=== PATIENT | male | born 1965 | race American Indian/Alaskan Native ===

== ENCOUNTER 2019-10-18 04:16 | Inpatient (IN) | payer OTHER, SELFPAY ==
[2019-10-18] MEDS ORDERED: ACETAMINOPHEN 500 MG TAB PO ONE (04:27)
[2019-10-18] MEDS ORDERED: SODIUM CHLORIDE 0.9% 1000 ML 1,000 ML IV ONE (07:34)
[2019-10-18] MEDS ORDERED: KETOROLAC 30 MG/1 ML INJ IV ONE (07:34)
--- NOTE | 2019-10-18 07:35 | Emergency Department Report ---
ED General Adult HPI - General Chief complaint: Headache Stated complaint: HEADACHE Time Seen by Provider: 10/18/19 07:11 Source: patient Mode of arrival: Ambulatory Limitations: No Limitations - History of Present Illness Initial comments: 54-year-old male who denies any known significant past medical history presents to the ER today complaint of headache and testicular swelling. Patient states that he has had a bitemporal headache intermittently for the past 2 days. He states that he has been taking Goody powders which has been helping the headac he. He denies any associated nausea, vomiting, neck pain, URI symptoms, cough, vision changes or any neuro symptoms. Patient also reports bilateral testicular swelling which he noticed last night. He denies any associated pain, redness to the testicles, injury to the testicles, and he denies any dysuria or penile discharge. He denies any associated abdominal pain or back pain. He denies any history of testicular issues or prostate issues in the past. Patient noted to have a fever here in the ER, he denies any fever at home. He denies any ill contacts, known COVID 19 contacts or recent travel. MD Complaint: Headache; Testicular swelling Severity scale (0 -10): 2 - Related Data Home Medications Medication Instructions Recorded Confirmed Last Taken No Known Home Medications [No 10/18/19 10/18/19 Unknown Reported Home Medications] Allergies Allergy/AdvReac Type Severity Reaction Status Date / Time No Known Allergies Allergy Unverified 10/18/19 04:27 ED Review of Systems ROS: Stated complaint: HEADACHE Other details as noted in HPI ED Past Medical Hx - Past Medical History Previous Medical History?: Yes Hx Hypertension: Yes - Surgical History Past Surgical History?: Yes Additional Surgical History: EXP Lap - Social History Smoking Status: Never Smoker Substance Use Type: None - Medications Home Medications: Home Medications Medication Instructions Recorded Confirmed Last Taken Type No Known Home Medications [No 10/18/19 10/18/19 Unknown History Reported Home Medications] ED Physical Exam - General Limitations: No Limitations General appearance: alert, in no apparent distress - Head Head exam: Present: atraumatic, normocephalic, normal inspection - Eye Eye exam: Present: normal appearance, PERRL, EOMI Pupils: Present: normal accommodation - ENT ENT exam: Present: normal exam, mucous membranes moist - Neck Neck exam: Present: normal inspection. Absent: meningismus - Respiratory Respiratory exam: Present: normal lung sounds bilaterally. Absent: respiratory distress - Cardiovascular Cardiovascular Exam: Present: regular rate, normal heart sounds - GI/Abdominal GI/Abdominal exam: Present: soft. Absent: distended, tenderness - exam: Present: testicular tenderness (mainly left), scrotal swelling (Mild bilaterally ). Absent: urethral discharge External exam: Present: swelling. Absent: erythema, lesions, ecchymosis, bleeding - Extremities Exam Extremities exam: Present: other (non pitting edema bilateral LE; No calf ttp) - Back Exam Back exam: Present: normal inspection - Neurological Exam Neurological exam: Present: alert, oriented X3, CN II-XII intact, normal gait - Psychiatric Psychiatric exam: Present: normal affect, normal mood - Skin Skin exam: Present: diaphoretic ED Course Vital Signs 10/18/19 10/18/19 10/18/19 04:25 05:31 05:58 Temperature 101.0 F H 99.5 F Pulse Rate 104 H 86 Respiratory 20 16 17 Rate Blood Pressure 139/93 Blood Pressure [Right] O2 Sat by Pulse 95 97 Oximetry 10/18/19 10/18/19 10/18/19 07:52 08:22 12:41 Temperature 97.8 F Pulse Rate 69 Respiratory 16 16 16 Rate Blood Pressure Blood Pressure 145/81 [Right] O2 Sat by Pulse 97 Oximetry ED Medical Decision Making - Lab Data Result diagrams: 10/18/19 08:24 10/18/19 08:24 - EKG Data EKG shows normal: sinus rhythm Rate: normal - EKG Data Interpretation: other (PAC, RBBB; No STEMI or acute ischemic changes; ) - Radiology Data Radiology results: report reviewed - Medical Decision Making 921 -- Reviewed labs/cxr/testicular US -- Interviewed pt again after reviewing test results. He denies any cp, sob, but admits to left leg swelling off and on x 6mths. He denies hx of known kidney disease or heart disease. He denies any new sexual partners. He does admits to not having a PCP and he has not been to a doctor in long time. Discussed case and lab/imaging results with Dr Biggs, agree with adding BNP, trop but also blood cultures, Urine culture, IV rocephin and recommend consulting u rologist given US results. 1054 -- Spoke to [facility] ([facility]) transfer line for urologist consult. They said they were going try [facility] but they may not have coverage. She recommend calling other facilities in the meantime. 1110 -- Spoke [facility] transfer line,- request for urology consult placed 11:40 -- Spoke to Dr Gaytan - Urologist at [facility] - She reports that epididymyoorchitis only requires outpt treatment with Bactrim for 2 weeks. No need for transfer. Given pt denies any pmhx -- pt will be admitted for CHF/renal insufficiency/elevated trop (suspect secondary to elevated creatinine and bnp - EKG show no acute stemi), hyponatremia and UTI. Decision to admit discussed with patient. He is currently resting comfortably. Denies any pain. He is currently stable. 1200 -- Spoke to Dr House (hospitalist here at [facility]) -- Accepts admission Critical care attestation.: If time is entered above; I have spent that time in minutes in the direct care of this critically ill patient, excluding procedure time. ED Disposition Clinical Impression: Congestive heart failure, Renal insufficiency, Epididymo-orchitis, Elevated troponin, Hyponatremia, UTI (urinary tract infection) Disposition: DC-01 TO HOME OR SELFCARE Is pt being admited?: Yes Does the pt Need Aspirin: No Condition: Stable
[2019-10-18 08:34] LABS: Basophils # (Auto) 0.1 K/mm3 (0.0-0.1); Basophils % (Auto) 0.4 % (0.0-1.8); Eosinophils % (Auto) 0.2 % (0.0-4.3); Hematocrit 38.1 % (35.5-45.6); Hemoglobin 12.3 gm/dl (11.8-15.2); Lymphocytes # (Auto) 1.9 K/mm3 (1.2-5.4); Lymphocytes % (Auto) 12.6 % (13.4-35.0); Mean Corpuscular HGB Conc 32 % (32-34); Mean Corpuscular Volume 83 fl (84-94); Monocytes # (Auto) 1.3 K/mm3 (0.0-0.8); Monocytes % (Auto) 8.4 % (0.0-7.3); Platelet Count 195 K/mm3 (140-440); Red Blood Count 4.62 M/mm3 (3.65-5.03); Red Cell Distribution Width 15.4 % (13.2-15.2)
--- NOTE | 2019-10-18 08:39 | Ultrasound Report ---
ULTRASOUND SCROTUM INDICATION / CLINICAL INFORMATION: Testicular pain. COMPARISON: None available. FINDINGS -- RIGHT TESTIS: Size = 4.7 x 3.2 x 3.8 cm. - Appearance: No significant abnormality. - Cyst or Mass: None. - Color Doppler Flow: Symmetric increased color flow is noted of the right testicle. EPIDIDYMIS: Enlarged epididymis measures 2.1 x 1.4 cm with increased color flow. HYDROCELE: Moderate hydrocele. VARICOCELE: None demonstrated. FINDINGS -- LEFT TESTIS: Size = 5.0 x 2.7 x 3.2 cm. - Appearance: No significant abnormality. - Cyst or Mass: None. - Color Doppler Flow: Symmetric increased color flow is noted of the left testicle. EPIDIDYMIS: The epididymis is minimally enlarged measuring 2.0 x 1.2 cm and demonstrating minimally increased color flow. HYDROCELE: Moderate hydrocele. VARICOCELE: None demonstrated. ADDITIONAL FINDINGS: Thickening of the scrotal superficial soft tissues. IMPRESSION: 1. Findings concerning for bilateral epididymoorchitis. 2. Moderate bilateral hydroceles. 3. Inflammatory changes to the scrotal superficial soft tissues. Signer Name: Kenan Bella MD Signed: 10/18/2019 8:34 AM Workstation Name: [id number]
[2019-10-18 08:53] LABS: Albumin 3.4 g/dL (3.9-5); Calcium 8.8 mg/dL (8.4-10.2)
--- NOTE | 2019-10-18 08:53 | XRay Report ---
CHEST 2 VIEWS INDICATION / CLINICAL INFORMATION: fever. COMPARISON: None available. FINDINGS: SUPPORT DEVICES: None. HEART / MEDIASTINUM: Enlarged cardiac silhouette. LUNGS / PLEURA: Mild central pulmonary vascular congestion. No confluent infiltrate.. No pneumothorax or effusion. ADDITIONAL FINDINGS: Calcification is noted projecting over the left hemidiaphragm. IMPRESSION: 1. Findings consistent with congestive heart failure and mild central pulmonary vascular congestion. Signer Name: Kenan Bella MD Signed: 10/18/2019 8:48 AM Workstation Name: [id number]
[2019-10-18] MEDS ORDERED: cefTRIAXone/NS 1 GM/50 ML 1 GM/50 ML BAG IV ONE (09:20)
[2019-10-18 09:51] LABS: Bilirubin,Urine NEG (Negative); Blood,Urine MOD (Negative); Color,Urine Amber (Yellow); Mucus,Urine 2+ /HPF
[2019-10-18] MEDS ORDERED: DOXYCYCLINE 100 MG CAP PO ONE (10:36)
[2019-10-18 10:44] LABS: Chol/HDL Ratio 2.71 %
--- NOTE | 2019-10-18 12:56 | Cat Scan Report ---
NONENHANCED CT SCAN OF THE HEAD: INDICATION / CLINICAL INFORMATION: 54 years Male; Headache, fever. TECHNIQUE: Routine CT head without contrast. All CT scans at this location are performed using CT dos e reduction for ALARA by means of automated exposure control. COMPARISON: CT scan of the head from 01/31/2012 FINDINGS: BRAIN / INTRACRANIAL CONTENTS: No acute hemorrhage, mass effect, midline shift, hydrocephalus, or acu te, large territorial infarct. No chronic infarct or focal atrophy. Normal brain volume and ventricul ar/sulcal size for age. Lower CT attenuation is seen symmetrically in the frontal lobe white matter a nd also in the left putamen. Parietal lobe and occipital lobe white matter normal. Poor ivffrj-wo-wps se is seen in the previous CT scan. CRANIOCERVICAL JUNCTION: No significant abnormality. ORBITS: No significant abnormality of visualized orbits. SINUSES / MASTOIDS: No significant abnormality of the visualized paranasal sinuses or mastoid air angelita ls. ADDITIONAL FINDINGS: None. IMPRESSION: Bifrontal white matter low-attenuation areas; Chronic small vessel disease; No CT findings to suggest acute parenchymal lesion Signer Name: Ana Altamirano MD Signed: 10/18/2019 12:52 PM Workstation Name: [id number]
--- NOTE | 2019-10-18 13:02 | History and Physical Report ---
History of Present Illness Date of examination: 10/18/19 Date of admission: 10/18/19 12:13 Medications and Allergies Allergies Allergy/AdvReac Type Severity Reaction Status Date / Time No Known Allergies Allergy Unverified 10/18/19 04:27 Home Medications Medication Instructions Recorded Confirmed Last Taken Type No Known Home Medications [No 10/18/19 10/18/19 Unknown History Reported Home Medications] Exam - Constitutional Vitals: Temp Pulse Resp BP Pulse Ox 97.8 F 69 16 145/81 97 10/18/19 12:41 10/18/19 12:41 10/18/19 12:41 10/18/19 12:41 10/18/19 12:41 HEART Score - HEART Score Troponin: Troponin T 0.054 ng/mL (0.00-0.029) H 10/18/19 08:24 Results - Labs CBC & Chem 7: 10/18/19 08:24 10/18/19 08:24 Labs: Abnormal lab results 10/18/19 10/18/19 10/18/19 Range/Units 08:24 08:24 08:24 WBC 15.3 H (4.5-11.0) K/mm3 MCV 83 L (84-94) fl MCH 27 L (28-32) pg RDW 15.4 H (13.2-15.2) % Lymph % (Auto) 12.6 L (13.4-35.0) % [place] % (Auto) 8.4 H (0.0-7.3) % [place] # 1.3 H (0.0-0.8) K/mm3 Seg Neutrophils % 78.4 H (40.0-70.0) % Seg Neutrophils # 12.0 H (1.8-7.7) K/mm3 Sodium 129 L (137-145) mmol/L Potassium 3.5 L (3.6-5.0) mmol/L Chloride 90.7 L (98-107) mmol/L BUN 23 H (9-20) mg/dL Creatinine 2.0 H (0.8-1.3) mg/dL Glucose 160 H (75-100) mg/dL AST 43 H (5-40) units/L Troponin T 0.054 H (0.00-0.029) ng/mL NT-Pro-B Natriuret Pep 3441 H (0-900) pg/mL Albumin 3.4 L (3.9-5) g/dL HDL Cholesterol 60 H (40-59) mg/dL Urine WBC (Auto) (0.0-6.0) /HPF 10/18/19 Range/Units 09:42 WBC (4.5-11.0) K/mm3 MCV (84-94) fl MCH (28-32) pg RDW (13.2-15.2) % Lymph % (Auto) (13.4-35.0) % [place] % (Auto) (0.0-7.3) % [place] # (0.0-0.8) K/mm3 Seg Neutrophils % (40.0-70.0) % Seg Neutrophils # (1.8-7.7) K/mm3 Sodium (137-145) mmol/L Potassium (3.6-5.0) mmol/L Chloride (98-107) mmol/L BUN (9-20) mg/dL Creatinine (0.8-1.3) mg/dL Glucose (75-100) mg/dL AST (5-40) units/L Troponin T (0.00-0.029) ng/mL NT-Pro-B Natriuret Pep (0-900) pg/mL Albumin (3.9-5) g/dL HDL Cholesterol (40-59) mg/dL Urine WBC (Auto) 23.0 H (0.0-6.0) /HPF
[2019-10-18] MEDS ORDERED: ACETAMINOPHEN 650 MG RECT SUPP PR PRN (13:04)
--- NOTE | 2019-10-18 13:47 | History and Physical Report ---
<FREDIS VIRAMONTES - Last Filed: 10/18/19 16:59> History of Present Illness Date of examination: 10/18/19 Date of admission: 10/18/19 12:13 Chief complaint: 1. lecucytosis 2. urinary trach Infection 3. Acute Kidney injury 4. Elevated trponin History of present illness: 54-year-old male who denies any known significant past medical history of hypertesion and CHF-presents to the ER today complaint of headache and testicular swelling-US of the scrotum shows moderate hydrocele. He denies any associated pain, redness to the testicles, injury to the testicles, and he denies any dysuria or penile discharge. Patient states that he has had a bitemporal headache intermittently for the past 2 days. He states that he has been taking Goody powders which has been helping the headache. He denies any associated nausea, vomiting, neck pain, URI symptoms, cough, vision changes or any neuro symptoms. He denies any associated abdominal pain or back pain. He denies any history of testicular issues or prostate issues in the past. ED Work up Shows WBC 15.3, hemoglobin 12.3, Platelet 195, D-dimer 959.12, potassium 3.5 CR 2.0, Serum glucose 160, Ferritin 804, BNP 3441 Urinalysis done-WBC 23.0 Scrotum US-positive for moderate Hydrocele Past History Past Medical History: heart failure, hypertension Past Surgical History: No surgical history Medications and Allergies Allergies Allergy/AdvReac Type Severity Reaction Status Date / Time No Known Allergies Allergy Unverified 10/18/19 04:27 Home Medications Medication Instructions Recorded Confirmed Last Taken Type No Known Home Medications [No 10/18/19 10/18/19 Unknown History Reported Home Medications] Active Meds: Active Medications Acetaminophen (Tylenol) [address] Q6H PRN PRN Reason: Pain, Mild (1-3) Carvedilol (Coreg) 6.25 mg PO BID KYA Furosemide (Lasix) 40 mg IV 0600,1800 [facility] Exam - Constitutional Vitals: Temp Pulse Resp BP Pulse Ox 97.8 F 69 16 145/81 97 10/18/19 12:41 10/18/19 12:41 10/18/19 12:41 10/18/19 12:41 10/18/19 12:41 General appearance: Present: no acute distress, well-nourished - EENT Eyes: Present: PERRL ENT: hearing intact, clear oral mucosa - Neck Neck: Present: supple, normal ROM - Respiratory Respiratory effort: normal Respiratory: bilateral: CTA - Cardiovascular Heart rate: 69 Heart Sounds: Present: S1 & S2. Absent: rub, click - Extremities Extremities: pulses symmetrical, No edema Peripheral Pulses: within normal limits - Abdominal General gastrointestinal: Present: soft, non-tender, non-distended, normal bowel sounds Male genitourinary: Present: normal - Integumentary Integumentary: Present: clear, warm, dry - Musculoskeletal Musculoskeletal: gait normal, strength equal bilaterally - Psychiatric Psychiatric: appropriate mood/affect, intact judgment & insight - Neurologic Neurologic: CNII-XII intact, moves all extremities - Allied Health Allied health notes reviewed: nursing HEART Score - HEART Score Troponin: Troponin T 0.054 ng/mL (0.00-0.029) H 10/18/19 08:24 Results - Labs CBC & Chem 7: 10/18/19 08:24 10/18/19 08:24 Labs: Abnormal lab results 10/18/19 10/18/19 10/18/19 Range/Units 08:24 08:24 08:24 WBC 15.3 H (4.5-11.0) K/mm3 MCV 83 L (84-94) fl MCH 27 L (28-32) pg RDW 15.4 H (13.2-15.2) % Lymph % (Auto) 12.6 L (13.4-35.0) % [place] % (Auto) 8.4 H (0.0-7.3) % [place] # 1.3 H (0.0-0.8) K/mm3 Seg Neutrophils % 78.4 H (40.0-70.0) % Seg Neutrophils # 12.0 H (1.8-7.7) K/mm3 Sodium 129 L (137-145) mmol/L Potassium 3.5 L (3.6-5.0) mmol/L Chloride 90.7 L (98-107) mmol/L BUN 23 H (9-20) mg/dL Creatinine 2.0 H (0.8-1.3) mg/dL Glucose 160 H (75-100) mg/dL AST 43 H (5-40) units/L Troponin T 0.054 H (0.00-0.029) ng/mL NT-Pro-B Natriuret Pep 3441 H (0-900) pg/mL Albumin 3.4 L (3.9-5) g/dL HDL Cholesterol 60 H (40-59) mg/dL Urine WBC (Auto) (0.0-6.0) /HPF 10/18/19 Range/Units 09:42 WBC (4.5-11.0) K/mm3 MCV (84-94) fl MCH (28-32) pg RDW (13.2-15.2) % Lymph % (Auto) (13.4-35.0) % [place] % (Auto) (0.0-7.3) % [place] # (0.0-0.8) K/mm3 Seg Neutrophils % (40.0-70.0) % Seg Neutrophils # (1.8-7.7) K/mm3 Sodium (137-145) mmol/L Potassium (3.6-5.0) mmol/L Chloride (98-107) mmol/L BUN (9-20) mg/dL Creatinine (0.8-1.3) mg/dL Glucose (75-100) mg/dL AST (5-40) units/L Troponin T (0.00-0.029) ng/mL NT-Pro-B Natriuret Pep (0-900) pg/mL Albumin (3.9-5) g/dL HDL Cholesterol (40-59) mg/dL Urine WBC (Auto) 23.0 H (0.0-6.0) /HPF Assessment and Plan - Patient Problems (1) SLIME (acute kidney injury) Current Visit: Yes Status: Acute Plan to address problem: ? Cause-likely UTI/Dehydration Monitor Kidney function Avoid nephrotoxic drugs Will Consult contemporary or modern dancer if needed Renal US-f/u with result (2) Leucocytosis Current Visit: Yes Status: Acute Plan to address problem: Likely due to UTI Continue IV hydration and IV antibiotic Monitor WBC (3) Congestive heart failure Current Visit: Yes Status: Acute Plan to address problem: Elevated BNP Property Site Manager consulted-f/u with recommendation Elevated BNP-[id number] Continue BB and diuretic ECHO-f/u with result Chest k-evv-yjohiz pending CT of the head-result pending (4) Elevated troponin Current Visit: Yes Status: Acute Plan to address problem: ? cause-cardiac, SLIME Monitor cardiac enzymes ECHO-f/u with result Property Site Manager consulted (5) Hyponatremia Current Visit: Yes Status: Acute Plan to address problem: likely due to dehydration Monitor sodium level (6) UTI (urinary tract infection) Current Visit: Yes Status: Acute Plan to address problem: Start Rocephine IV urine culture Blood culture (7) DVT prophylaxis Current Visit: Yes Status: Acute Plan to address problem: heparin SQ (8) Elevated d-dimer Current Visit: Yes Status: Acute Plan to address problem: Elevated inflammatory makers including ferritin trend inflammatory makers Continue anti-coagulant with heparin Covid test done-f/u with result observe airborne and contact isolation-till covid result (9) Scrotum swelling Current Visit: Yes Status: Acute Plan to address problem: Srotum swelling likely 2/2 chf US shows moderate hydrocele patient advised to follow up with urologist out patient if scrotum edema persist <EASTON CARLSO - Last Filed: 10/18/19 22:36> History of Present Illness Date of admission: 10/18/19 12:13 Chief complaint: I have seen and examined the patient at the bedside in ER awaiting bed assignment Patient's chart medication list tests and reports reviewed I have reviewed and agree with the nurse practitioners evaluation. Documentation and treatment plan With the following additions and corrections. --Epididymoorchitis; Empiric antibiotics Rocephin and doxycycline Blood cultures, support the scrotum Urology consult, consider ID consult as needed --Bilateral hydrocele; Patient patient has generalized anasarca Urology consult, surgery consult if needed --Morbid obesity; BMI 39.8 Patient needs weight reduction when medically stable --DVT prophylaxis; We will closely monitor the patient and adjust management as needed Plan of care reviewed with the patient and his nurse Medications and Allergies Active Meds: Active Medications Acetaminophen (Tylenol) [address] Q6H PRN PRN Reason: Pain, Mild (1-3) Atorvastatin Calcium (Lipitor) 40 mg PO QHS [facility] Carvedilol (Coreg) 6.25 mg PO BID [facility] Doxycycline Hyclate (Vibramycin) 100 mg PO BID [facility] Furosemide (Lasix) 40 mg IV 0600,1800 [facility] Last Admin: 10/18/19 18:50 Dose: 40 mg Documented by: Heparin Sodium (Porcine) (Heparin) 5,000 unit SUB-Q Q8HR KYA Ceftriaxone Sodium 1,000 mg/ (Sodium Chloride) 50 mls @ 100 mls/hr IV PREOP NR; Protocol Stop: 10/23/19 14:59 Exam - Constitutional Vitals: Temp Pulse Resp BP Pulse Ox 99.6 F 127 H 16 131/98 95 10/18/19 20:47 10/18/19 20:47 10/18/19 20:57 10/18/19 20:47 10/18/19 20:47 HEART Score - HEART Score Troponin: Troponin T 0.054 ng/mL (0.00-0.029) H 10/18/19 08:24 Results - Labs CBC & Chem 7: 10/18/19 08:24 10/18/19 08:24 Labs: Abnormal lab results 10/18/19 10/18/19 10/18/19 Range/Units 08:24 08:24 08:24 WBC 15.3 H (4.5-11.0) K/mm3 MCV 83 L (84-94) fl MCH 27 L (28-32) pg RDW 15.4 H (13.2-15.2) % Lymph % (Auto) 12.6 L (13.4-35.0) % [place] % (Auto) 8.4 H (0.0-7.3) % [place] # 1.3 H (0.0-0.8) K/mm3 Seg Neutrophils % 78.4 H (40.0-70.0) % Seg Neutrophils # 12.0 H (1.8-7.7) K/mm3 D-Dimer (0-234) ng/mlDDU Sodium 129 L (137-145) mmol/L Potassium 3.5 L (3.6-5.0) mmol/L Chloride 90.7 L (98-107) mmol/L BUN 23 H (9-20) mg/dL Creatinine 2.0 H (0.8-1.3) mg/dL Glucose 160 H (75-100) mg/dL Ferritin (30.0-300.0) ng/mL AST 43 H (5-40) units/L Lactate Dehydrogenase (91-180) units/L Troponin T 0.054 H (0.00-0.029) ng/mL C-Reactive Protein (0.00-1.30) mg/dL NT-Pro-B Natriuret Pep 3441 H (0-900) pg/mL Albumin 3.4 L (3.9-5) g/dL HDL Cholesterol 60 H (40-59) mg/dL Urine WBC (Auto) (0.0-6.0) /HPF 10/18/19 10/18/19 10/18/19 Range/Units 09:42 12:32 12:32 WBC (4.5-11.0) K/mm3 MCV (84-94) fl MCH (28-32) pg RDW (13.2-15.2) % Lymph % (Auto) (13.4-35.0) % [place] % (Auto) (0.0-7.3) % [place] # (0.0-0.8) K/mm3 Seg Neutrophils % (40.0-70.0) % Seg Neutrophils # (1.8-7.7) K/mm3 D-Dimer 959.12 H (0-234) ng/mlDDU Sodium (137-145) mmol/L Potassium (3.6-5.0) mmol/L Chloride (98-107) mmol/L BUN (9-20) mg/dL Creatinine (0.8-1.3) mg/dL Glucose (75-100) mg/dL Ferritin 804.0 H (30.0-300.0) ng/mL AST (5-40) units/L Lactate Dehydrogenase (91-180) units/L Troponin T (0.00-0.029) ng/mL C-Reactive Protein (0.00-1.30) mg/dL NT-Pro-B Natriuret Pep (0-900) pg/mL Albumin (3.9-5) g/dL HDL Cholesterol (40-59) mg/dL Urine WBC (Auto) 23.0 H (0.0-6.0) /HPF 10/18/19 Range/Units 12:32 WBC (4.5-11.0) K/mm3 MCV (84-94) fl MCH (28-32) pg RDW (13.2-15.2) % Lymph % (Auto) (13.4-35.0) % [place] % (Auto) (0.0-7.3) % [place] # (0.0-0.8) K/mm3 Seg Neutrophils % (40.0-70.0) % Seg Neutrophils # (1.8-7.7) K/mm3 D-Dimer (0-234) ng/mlDDU Sodium (137-145) mmol/L Potassium (3.6-5.0) mmol/L Chloride (98-107) mmol/L BUN (9-20) mg/dL Creatinine (0.8-1.3) mg/dL Glucose (75-100) mg/dL Ferritin (30.0-300.0) ng/mL AST (5-40) units/L Lactate Dehydrogenase 387 H (91-180) units/L Troponin T (0.00-0.029) ng/mL C-Reactive Protein 32.30 H (0.00-1.30) mg/dL NT-Pro-B Natriuret Pep (0-900) pg/mL Albumin (3.9-5) g/dL HDL Cholesterol (40-59) mg/dL Urine WBC (Auto) (0.0-6.0) /HPF
[2019-10-18 14:42] LABS: C-Reactive Protein 32.3 mg/dL (0.00-1.30)
[2019-10-18] MEDS ORDERED: FUROSEMIDE 40 MG/4 ML INJ ONE (18:05)
[2019-10-18] MEDS: FUROSEMIDE 40 MG/4 ML INJ IV SCH (18:50)
--- NOTE | 2019-10-18 19:04 | Ultrasound Report ---
US renal BILAT INDICATION / CLINICAL INFORMATION: SLIME. COMPARISON: None available. FINDINGS: Kidneys are normal in size, shape and position. Right kidney measures 12 cm in length, with cortical thickness of 1.7 cm. Left kidney also measures 12 cm in length, with approximately 1.6 cm cortical th ickness. Neither kidney is hydronephrotic. No obvious renal calculi. Urinary bladder is unremarkable. IMPRESSION: 1. Negative study. Signer Name: Herminio Whitney MD Signed: 10/18/2019 7:00 PM Workstation Name: [id number]
[2019-10-18] MEDS: HEPARIN 5,000 UNIT/1 ML VIAL SUB-Q SCH (23:00)
[2019-10-18] MEDS: carvediloL 6.25 MG TAB PO SCH (23:00)
[2019-10-19] MEDS: HEPARIN 5,000 UNIT/1 ML VIAL SUB-Q SCH ×3 (06:12→22:04)
[2019-10-19] MEDS: FUROSEMIDE 40 MG/4 ML INJ IV SCH ×2 (06:12→18:41)
--- NOTE | 2019-10-19 08:29 | Progress Note ---
Assessment and Plan - Patient Problems (1) SLIME (acute kidney injury) Current Visit: Yes Status: Acute Plan to address problem: ? Cause-likely UTI/Dehydration Monitor Kidney function Avoid nephrotoxic drugs Will Consult icing machine operator if needed Renal US-negative for acute process (2) Leucocytosis Current Visit: Yes Status: Acute Plan to address problem: Likely due to UTI Continue IV hydration and IV antibiotic Monitor WBC (3) Congestive heart failure Current Visit: Yes Status: Acute Plan to address problem: Elevated BNP Marine Animal Trainer consulted-f/u with recommendation Elevated BNP-3341 Continue BB and diuretic ECHO-f/u with result Chest [id number] pending CT of the head-no acute finding (4) Elevated troponin Current Visit: Yes Status: Acute Plan to address problem: ? cause-cardiac, SLIME/infection-uti Monitor cardiac enzymes ECHO-f/u with result Marine Animal Trainer consulted Stress test before d/c (5) Hyponatremia Current Visit: Yes Status: Acute Plan to address problem: likely due to fluid overload Monitor sodium level (6) UTI (urinary tract infection) Current Visit: Yes Status: Acute Plan to address problem: continue Rocephine IV urine culture Blood culture (7) DVT prophylaxis Current Visit: Yes Status: Acute Plan to address problem: heparin SQ (8) Elevated d-dimer Current Visit: Yes Status: Acute Plan to address problem: Elevated inflammatory makers including ferritin-likely due to bacterial infection Covid test negative continue anti-coagulant with heparin Covid test done-f/u with result D/c airborne and contact isolation (9) Epididymo-orchitis Current Visit: Yes Status: Acute Plan to address problem: Continue IV antibiotics (10) Morbid (severe) obesity due to excess calories Current Visit: Yes Status: Acute Plan to address problem: Discussed lifestyle modification and weight management (11) Bilateral hydrocele Current Visit: Yes Status: Acute Plan to address problem: Patient patient has generalized edema Urology consult, surgery consult if needed Srotum swelling likely 2/2 chf US shows moderate hydrocele Subjective Date of service: 10/19/19 Interval history: I have seen and examined the patient at the bedside Patient's chart medication list tests and reports reviewed Epididymoorchitis-will continue empiric antibiotic pending blood and urine culture result and sensitivity Urology consulted and will consult ID consult as needed. Reviewed bike mechanic note and reces Continue Nitro ointment for pre-and afterload reduction. Intravenous diuretics Echocardiogram to assess global and regional function. Stress MPI prior to discharge Objective - Constitutional Vitals: Vital Signs - 12hr 10/18/19 10/18/19 10/18/19 20:47 20:57 23:00 Temperature 99.6 F Pulse Rate 127 H 127 H Respiratory 20 16 Rate Blood Pressure Blood Pressure 131/98 [Right] O2 Sat by Pulse 95 Oximetry 10/19/19 05:10 Temperature 99.2 F Pulse Rate 99 H Respiratory 20 Rate Blood Pressure 130/74 Blood Pressure [Right] O2 Sat by Pulse 95 Oximetry General appearance: Present: mild distress, obese - EENT Eyes: PERRL, EOM intact ENT: hearing intact, clear oral mucosa Ears: bilateral: normal - Neck Neck: supple, normal ROM - Respiratory Respiratory effort: normal Respiratory: bilateral: CTA - Breasts Breasts: normal - Cardiovascular Rhythm: regular Heart Sounds: Present: S1 & S2. Absent: gallop, rub Extremities: pulses intact, normal color, Full ROM Extremity abnormal: edema - Gastrointestinal General gastrointestinal: Present: soft, non-tender, non-distended, normal bowel sounds - Genitourinary Male genitourinary: normal - Integumentary Integumentary: clear, warm, dry - Musculoskeletal Musculoskeletal: 1, strength equal bilaterally - Neurologic Neurologic: moves all extremities - Psychiatric Psychiatric: memory intact, appropriate mood/affect, intact judgment & insight - Allied health notes Allied health notes reviewed: nursing - Labs CBC & Chem 7: 10/18/19 08:24 10/18/19 08:24 Labs: Abnormal lab results 10/18/19 10/18/19 10/18/19 Range/Units 08:24 08:24 08:24 WBC 15.3 H (4.5-11.0) K/mm3 MCV 83 L (84-94) fl MCH 27 L (28-32) pg RDW 15.4 H (13.2-15.2) % Lymph % (Auto) 12.6 L (13.4-35.0) % [place] % (Auto) 8.4 H (0.0-7.3) % [place] # 1.3 H (0.0-0.8) K/mm3 Seg Neutrophils % 78.4 H (40.0-70.0) % Seg Neutrophils # 12.0 H (1.8-7.7) K/mm3 D-Dimer (0-234) ng/mlDDU Sodium 129 L (137-145) mmol/L Potassium 3.5 L (3.6-5.0) mmol/L Chloride 90.7 L (98-107) mmol/L BUN 23 H (9-20) mg/dL Creatinine 2.0 H (0.8-1.3) mg/dL Glucose 160 H (75-100) mg/dL Ferritin (30.0-300.0) ng/mL AST 43 H (5-40) units/L Lactate Dehydrogenase (91-180) units/L Troponin T 0.054 H (0.00-0.029) ng/mL C-Reactive Protein (0.00-1.30) mg/dL NT-Pro-B Natriuret Pep 3441 H (0-900) pg/mL Albumin 3.4 L (3.9-5) g/dL HDL Cholesterol 60 H (40-59) mg/dL Urine WBC (Auto) (0.0-6.0) /HPF 10/18/19 10/18/19 10/18/19 Range/Units 09:42 12:32 12:32 WBC (4.5-11.0) K/mm3 MCV (84-94) fl MCH (28-32) pg RDW (13.2-15.2) % Lymph % (Auto) (13.4-35.0) % [place] % (Auto) (0.0-7.3) % [place] # (0.0-0.8) K/mm3 Seg Neutrophils % (40.0-70.0) % Seg Neutrophils # (1.8-7.7) K/mm3 D-Dimer 959.12 H (0-234) ng/mlDDU Sodium (137-145) mmol/L Potassium (3.6-5.0) mmol/L Chloride (98-107) mmol/L BUN (9-20) mg/dL Creatinine (0.8-1.3) mg/dL Glucose (75-100) mg/dL Ferritin 804.0 H (30.0-300.0) ng/mL AST (5-40) units/L Lactate Dehydrogenase (91-180) units/L Troponin T (0.00-0.029) ng/mL C-Reactive Protein (0.00-1.30) mg/dL NT-Pro-B Natriuret Pep (0-900) pg/mL Albumin (3.9-5) g/dL HDL Cholesterol (40-59) mg/dL Urine WBC (Auto) 23.0 H (0.0-6.0) /HPF 10/18/19 Range/Units 12:32 WBC (4.5-11.0) K/mm3 MCV (84-94) fl MCH (28-32) pg RDW (13.2-15.2) % Lymph % (Auto) (13.4-35.0) % [place] % (Auto) (0.0-7.3) % [place] # (0.0-0.8) K/mm3 Seg Neutrophils % (40.0-70.0) % Seg Neutrophils # (1.8-7.7) K/mm3 D-Dimer (0-234) ng/mlDDU Sodium (137-145) mmol/L Potassium (3.6-5.0) mmol/L Chloride (98-107) mmol/L BUN (9-20) mg/dL Creatinine (0.8-1.3) mg/dL Glucose (75-100) mg/dL Ferritin (30.0-300.0) ng/mL AST (5-40) units/L Lactate Dehydrogenase 387 H (91-180) units/L Troponin T (0.00-0.029) ng/mL C-Reactive Protein 32.30 H (0.00-1.30) mg/dL NT-Pro-B Natriuret Pep (0-900) pg/mL Albumin (3.9-5) g/dL HDL Cholesterol (40-59) mg/dL Urine WBC (Auto) (0.0-6.0) /HPF HEART Score - HEART Score History: Slightly suspicious Troponin: Troponin T 0.054 ng/mL (0.00-0.029) H 10/18/19 08:24
--- NOTE | 2019-10-19 10:41 | Consultation ---
History of Present Illness Consult date: 10/19/19 Consult reason: congestive heart failure History of present illness: 54-year-old -[place] male with a history of hypertension and congestive heart failure presenting with scrotal swelling headache. Patient had a chest x- ray done which showed pulmonary vascular congestion and his BNP was elevated. He admits to having shortness of breath and dyspnea but no chest pain. Past History Past Medical History: heart failure, hypertension Past Surgical History: No surgical history Social history: smoking. denies: alcohol abuse, prescription drug abuse, IV drug use Family history: diabetes, hypertension Medications and Allergies Allergies Allergy/AdvReac Type Severity Reaction Status Date / Time No Known Allergies Allergy Unverified 10/18/19 04:27 Home Medications Medication Instructions Recorded Confirmed Last Taken Type No Known Home Medications [No 10/18/19 10/18/19 Unknown History Reported Home Medications] Active Meds: Active Medications Acetaminophen (Tylenol) 650 mg LA Q6H PRN PRN Reason: Pain, Mild (1-3) Atorvastatin Calcium (Lipitor) 40 mg PO QHS [facility] Last Admin: 10/18/19 23:00 Dose: 40 mg Documented by: Carvedilol (Coreg) 6.25 mg PO BID [facility] Last Admin: 10/18/19 23:00 Dose: 6.25 mg Documented by: Doxycycline Hyclate (Vibramycin) 100 mg PO BID [facility] Furosemide (Lasix) 40 mg IV 0600,1800 [facility] Last Admin: 10/19/19 06:12 Dose: 40 mg Documented by: Heparin Sodium (Porcine) (Heparin) 5,000 unit SUB-Q Q8HR [facility] Last Admin: 10/19/19 06:12 Dose: 5,000 unit Documented by: Ceftriaxone Sodium 1,000 mg/ (Sodium Chloride) 50 mls @ 100 mls/hr IV PREOP NR; Protocol Stop: 10/23/19 14:59 Review of Systems Constitutional: weakness, no weight loss, no weight gain, no fever, no chills, no sweats, no fatigue Ears, nose, mouth and throat: no ear pain, no ear discharge, no tinnitis, no decreased hearing Cardiovascular: edema, dyspnea on exertion, no chest pain, no orthopnea, no rapid/irregular heart beat Respiratory: no cough, no cough with sputum, no excessive sputum, no dyspnea on exertion, no congestion, no wheezing, no pleurisy Gastrointestinal: no abdominal pain, no nausea, no vomiting, no diarrhea Genitourinary Male: testicular pain, no dysuria, no hematuria, no flank pain, no discharge Rectal: no pain, no incontinence, no bleeding Musculoskeletal: no neck stiffness, no neck pain, no low back pain, no hot joints Integumentary: no rash, no pruritis Neurological: no head injury, no transient paralysis, no paralysis, no weakness, no parathesias Psychiatric: no anxiety, no memory loss Endocrine: no cold intolerance, no heat intolerance, no polyphagia, no excessive thirst, no polydipsia, no polyuria, no nocturia Hematologic/Lymphatic: no easy bruising, no easy bleeding Allergic/Immunologic: no urticaria, no allergic rhinitis, no wheezing Physical Examination Vital Signs Temp Pulse Resp BP Pulse Ox 101.0 F H 104 H 20 139/93 95 10/18/19 04:25 10/18/19 04:25 10/18/19 04:25 10/18/19 04:25 10/18/19 04:25 General appearance: no acute distress, obese HEENT: Positive: PERRL, Normocephaly, Mucus Membranes Moist Neck: Positive: neck supple, trachea midline Cardiac: Positive: Regular Rate, S1/S2, PMI, Laterally Displaced Lungs: Positive: clear to auscultation, No Wheeze, Rales, Rhonchi Neuro: Positive: Grossly Intact, No Lateralizing Findings Abdomen: Positive: Active Bowel Sounds Skin: Positive: Rash Extremities: Absent: edema Results 10/18/19 08:24 10/18/19 08:24 Cardiac Enzymes 10/18/19 Range/Units 12:32 Lactate Dehydrogenase 387 H (91-180) units/L Lipids 10/18/19 Range/Units 08:24 Triglycerides 87 (2-149) mg/dL Cholesterol 163 (50-199) mg/dL HDL Cholesterol 60 H (40-59) mg/dL Cholesterol/HDL Ratio 2.71 % EKG interpretations - Telemetry EKG Rhythm: Sinus Rhythm - EKG Sinus rhythms and dysrhythmias: sinus rhythm Assessment and Plan 1. Acute testicular pain 2. Acute mild congestive heart failure probably secondary to fluid overload. 3. Chronic kidney disease stage III 4. Essential hypertension 5. Obesity. 6. Nonspecific elevation of serum troponin level in the setting of chronic kidney disease 7. Urinary tract infection Plan. Nitro ointment for pre-and afterload reduction. Intravenous diuretics Echocardiogram to assess global and regional function. Stress MPI prior to discharge.
[2019-10-19] MEDS: cefTRIAXone/NS 1 GM/50 ML 1 GM/50 ML BAG IV SCH (13:31)
[2019-10-19] MEDS: DOXYCYCLINE 100 MG CAP PO SCH ×2 (13:31→22:03)
[2019-10-19] MEDS: carvediloL 6.25 MG TAB PO SCH ×2 (13:35→22:03)
[2019-10-19 20:28] LABS: Calcium 8.8 mg/dL (8.4-10.2)
[2019-10-20] MEDS: HEPARIN 5,000 UNIT/1 ML VIAL SUB-Q SCH ×3 (05:08→22:52)
[2019-10-20] MEDS: FUROSEMIDE 40 MG/4 ML INJ IV SCH ×2 (05:08→18:00)
--- NOTE | 2019-10-20 08:00 | Progress Note ---
Assessment and Plan - Patient Problems (1) SLIME (acute kidney injury) Current Visit: Yes Status: Acute Plan to address problem: ? Cause-likely UTI/Dehydration Monitor Kidney function-improving Avoid nephrotoxic drugs Renal US-negative for abstruction and hydronephrosis (2) Leucocytosis Current Visit: Yes Status: Acute Plan to address problem: Likely due to UTI/bacterial lelypesin-[id number] 9.2 today Continue antibiotics Inflammatory makers elevated-patient is covid negative Monitor WBC (3) Congestive heart failure Current Visit: Yes Status: Acute Plan to address problem: Condition stable [employer] Paralegal consulted-f/u with recommendation Elevated BNP-3341 Continue BB and diuretic ECHO-EF 45% Chest [id number] consistent with congestive heart failure and mild central pulmonary vascular congestion. CT of the head-no acute finding (4) Elevated troponin Current Visit: Yes Status: Acute Plan to address problem: ? cause-cardiac, SLIME/infection-uti Monitor cardiac enzymes ECHO-result pending [employer]adem[employer] Paralegal consulted Stress test before d/c (5) Hyponatremia Current Visit: Yes Status: Acute Plan to address problem: likely 2/2 fluid overload-improving Low sodium improving 134 today Monitor sodium level (6) UTI (urinary tract infection) Current Visit: Yes Status: Acute Plan to address problem: continue Rocephine IV urine culture Blood culture (7) DVT prophylaxis Current Visit: Yes Status: Acute Plan to address problem: heparin SQ (8) Elevated d-dimer Current Visit: Yes Status: Acute Plan to address problem: Elevated inflammatory makers including ferritin-likely due to bacterial infection Covid test negative continue anti-coagulant with heparin D/c airborne and contact isolation (9) Epididymo-orchitis Current Visit: Yes Status: Acute Plan to address problem: Continue IV antibiotics (10) Morbid (severe) obesity due to excess calories Current Visit: Yes Status: Acute Plan to address problem: Discussed lifestyle modification and weight management (11) Bilateral hydrocele Current Visit: Yes Status: Acute Plan to address problem: Stable Urology consult, surgery consult if needed Srotum swelling likely 2/2 chf US shows moderate hydrocele Subjective Date of service: 10/20/19 Principal diagnosis: shortness of breath Interval history: I have seen and examined the patient at the bedside Patient on room air. He denies cp and shortness breath Patient's chart medication list tests and reports reviewed Epididymoorchitis-will continue empiric antibiotic pending blood and urine culture result and sensitivity Urology consulted and will consult ID consult as needed. 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 Intravenous diuretics Echocardiogram - Shows- Moderate concentric LVH with low normal global LV function LVEF 45 to 50% Stress MPI prior to discharge Objective - Constitutional Vitals: Vital Signs - 12hr 10/19/19 10/19/19 10/19/19 22:00 22:02 22:03 Temperature 98.2 F Pulse Rate 85 Pulse Rate [ 85 Right Radial] Respiratory 20 20 Rate Blood Pressure 104/59 104/59 O2 Sat by Pulse 93 93 Oximetry 10/20/19 04:59 Temperature 98.2 F Pulse Rate 82 Pulse Rate [ Right Radial] Respiratory 20 Rate Blood Pressure 142/96 O2 Sat by Pulse 92 Oximetry General appearance: Present: no acute distress, well-nourished - EENT Eyes: PERRL, EOM intact ENT: hearing intact, clear oral mucosa Ears: bilateral: normal - Neck Neck: supple, normal ROM - Respiratory Respiratory effort: normal Respiratory: bilateral: CTA - Breasts Breasts: normal - Cardiovascular Rhythm: regular Heart Sounds: Present: S1 & S2. Absent: gallop, rub Extremities: pulses intact, No edema, normal color, Full ROM - Gastrointestinal General gastrointestinal: Present: soft, non-tender, non-distended, normal bowel sounds - Genitourinary Male genitourinary: normal - Integumentary Integumentary: clear, warm, dry - Musculoskeletal Musculoskeletal: 1, strength equal bilaterally - Neurologic Neurologic: moves all extremities - Psychiatric Psychiatric: memory intact, appropriate mood/affect, intact judgment & insight - Labs CBC & Chem 7: 10/20/19 08:11 10/20/19 08:11 Labs: Abnormal lab results 10/19/19 Range/Units 19:10 Sodium 131 L (137-145) mmol/L Chloride 87.8 L (98-107) mmol/L BUN 39 H (9-20) mg/dL Creatinine 2.0 H (0.8-1.3) mg/dL Glucose 210 H (75-100) mg/dL HEART Score - HEART Score Troponin: Troponin T 0.054 ng/mL (0.00-0.029) H 10/18/19 08:24
[2019-10-20 08:33] LABS: Basophils % (Auto) 0.4 % (0.0-1.8); Eosinophils # (Auto) 0.3 K/mm3 (0.0-0.4); Eosinophils % (Auto) 3.1 % (0.0-4.3); Hematocrit 35.7 % (35.5-45.6); Hemoglobin 12.4 gm/dl (11.8-15.2); Lymphocytes # (Auto) 1.6 K/mm3 (1.2-5.4); Lymphocytes % (Auto) 17.2 % (13.4-35.0); Mean Corpuscular HGB Conc 35 % (32-34); Mean Corpuscular Volume 82 fl (84-94); Monocytes # (Auto) 0.7 K/mm3 (0.0-0.8); Monocytes % (Auto) 7.9 % (0.0-7.3); Platelet Count 254 K/mm3 (140-440); Red Blood Count 4.36 M/mm3 (3.65-5.03); Red Cell Distribution Width 16.1 % (13.2-15.2)
[2019-10-20] MEDS: carvediloL 6.25 MG TAB PO SCH ×2 (09:38→22:53)
[2019-10-20] MEDS: DOXYCYCLINE 100 MG CAP PO SCH ×2 (09:39→22:54)
--- NOTE | 2019-10-20 09:44 | Progress Note ---
Assessment and Plan 1. Acute testicular pain 2. Acute mild congestive heart failure probably secondary to fluid overload. 3. Chronic kidney disease stage III 4. Essential hypertension 5. Obesity. 6. Nonspecific elevation of serum troponin level in the setting of chronic kidney disease 7. Urinary tract infection Echocardiogram: Moderate concentric LVH with low normal global LV function LVEF 45 to 50% Plan. Continue present medication. CHF education on heart failure Lexiscan scan to rule out ischemic coronary artery disease prior to discharge. Subjective Date of service: 10/20/19 Interval history: No cardiac symptoms Objective Vital Signs Temp Pulse Pulse Resp BP Pulse Ox 10/20/19 09:38 82 142/96 10/20/19 04:59 98.2 F 82 20 142/96 92 10/19/19 22:03 104/59 10/19/19 22:02 98.2 F 85 20 104/59 93 10/19/19 22:00 85 20 93 10/19/19 16:46 99.1 F 90 22 120/83 95 10/19/19 13:35 90 118/83 10/19/19 11:54 98.9 F 90 20 118/83 96 10/19/19 10:00 95 - Physical Examination HEENT: Positive: PERRL, Normocephaly, Mucus Membranes Moist Neck: Positive: neck supple, trachea midline Cardiac: Positive: Regular Rate, S1/S2, S3, PMI, Dilated, Laterally Displaced Lungs: Positive: clear to auscultation, No Wheeze, Rales, Rhonchi Neuro: Positive: Grossly Intact, No Lateralizing Findings Abdomen: Positive: Active Bowel Sounds Skin: Positive: Rash Extremities: Absent: edema - Labs and Meds CBC 10/20/19 Range/Units 08:11 WBC 9.2 (4.5-11.0) K/mm3 RBC 4.36 (3.65-5.03) M/mm3 Hgb 12.4 (11.8-15.2) gm/dl Hct 35.7 (35.5-45.6) % Plt Count 254 (140-440) K/mm3 Lymph # 1.6 (1.2-5.4) K/mm3 [place] # 0.7 (0.0-0.8) K/mm3 Eos # 0.3 (0.0-0.4) K/mm3 Baso # 0.0 (0.0-0.1) K/mm3 Comprehensive Metabolic Panel 10/19/19 10/20/19 Range/Units 19:10 08:11 Sodium 131 L 134 L (137-145) mmol/L Potassium 3.7 4.0 (3.6-5.0) mmol/L Chloride 87.8 L 92.1 L (98-107) mmol/L Carbon Dioxide 28 28 (22-30) mmol/L BUN 39 H 39 H (9-20) mg/dL Creatinine 2.0 H 1.9 H (0.8-1.3) mg/dL Glucose 210 H 160 H (75-100) mg/dL Calcium 8.8 9.0 (8.4-10.2) mg/dL - EKG Sinus rhythms and dysrhythmias: sinus rhythm
[2019-10-20] MEDS: cefTRIAXone/NS 1 GM/50 ML 1 GM/50 ML BAG IV SCH (15:03)
[2019-10-21] MEDS: HEPARIN 5,000 UNIT/1 ML VIAL SUB-Q SCH ×2 (06:07→13:19)
[2019-10-21] MEDS: FUROSEMIDE 40 MG/4 ML INJ IV SCH ×2 (06:07→17:09)
--- NOTE | 2019-10-21 08:42 | XRay Report ---
CHEST 1 VIEW INDICATION / CLINICAL INFORMATION: SOB V/Q PROTOCOL. COMPARISON: 10/18/2019 FINDINGS: SUPPORT DEVICES: None. HEART / MEDIASTINUM: Stable. LUNGS / PLEURA: Minimal bibasilar atelectasis. No focal consolidation or significant pleural effusion . No pneumothorax. ADDITIONAL FINDINGS: No significant additional findings. IMPRESSION: 1. No acute findings. Signer Name: Jhon Arellano MD Signed: 10/21/2019 8:38 AM Workstation Name: [id number]
[2019-10-21] MEDS: carvediloL 6.25 MG TAB PO SCH (09:19)
[2019-10-21] MEDS: DOXYCYCLINE 100 MG CAP PO SCH (09:19)
--- NOTE | 2019-10-21 11:17 | Nuclear Medicine Report ---
Nuclear medicine perfusion lung scan Indication: Shortness of breath Technique: 5.5 mCi of Tc 99m MAA were given by IV. Findings: Comparison with chest radiograph from earlier same day. Perfusion images are unremarkable; specifically, no wedge-shaped, pleural-based, segmental defects ar e seen. Impression: No perfusion defects are identified to suggest acute PTE. Signer Name: Giovany Beckham MD Signed: 10/21/2019 11:13 AM Workstation Name: [id number]
--- NOTE | 2019-10-21 11:47 | Vascular Lab Report ---
DUPLEX DOPPLER LOWER EXTREMITY VEINS, BILATERAL INDICATION: Elevated D-dimers, evaluate for DVT. TECHNIQUE: Duplex doppler imaging was performed through the veins of both lower extremities using ve nous compression and other maneuvers. COMPARISON: No relevant prior imaging study available. FINDINGS: Right Common femoral vein: Negative. Right Superficial femoral vein: Negative. Right Popliteal vein: Negative. Right Calf veins: Negative. Left Common femoral vein: Negative. Left Superficial femoral vein: Negative. Left Popliteal vein: Negative. Left Calf veins: Negative. Additional findings: None.. IMPRESSION: No sonographic evidence for DVT in either lower extremity. Signer Name: Darwin Sanders Jr, MD Signed: 10/21/2019 11:43 AM Workstation Name: [id number]
--- NOTE | 2019-10-21 12:27 | Progress Note ---
Assessment and Plan - Patient Problems (1) Elevated troponin Current Visit: Yes Status: Acute Plan to address problem: Nonspecific elevated troponin in the setting of renal failure Echocardiogram: Moderate concentric LVH with low normal global LV function LVEF 45 to 50% Subjective Date of service: 10/21/19 Principal diagnosis: shortness of breath Interval history: No cardiac reports. Objective Vital Signs Temp Pulse Pulse Resp BP Pulse Ox 10/21/19 11:37 98.6 F 78 20 120/79 95 10/21/19 05:38 98.3 F 77 20 138/92 94 10/20/19 22:36 98.2 F 79 20 128/83 95 10/20/19 22:00 79 20 95 10/20/19 16:10 98.5 F 81 18 121/78 96 - Physical Examination General: No Apparent Distress HEENT: Positive: PERRL Cardiac: Positive: Reg Rate and Rhythm Neuro: Positive: Grossly Intact - EKG Sinus rhythms and dysrhythmias: sinus rhythm
[2019-10-21] MEDS: cefTRIAXone/NS 1 GM/50 ML 1 GM/50 ML BAG IV SCH (13:19)
--- NOTE | 2019-10-21 15:54 | Consultation ---
History of Present Illness - Reason for Consult Consult date: 10/21/19 acute renal failure - History of Present Illness The patient is a 54 YO male who is morbidly obese and denies any known medical history who presented to [facility] ER 10/17 with complaint of headache and testicular swelling for few days. Patient states that he has had a bitemporal headache intermittently of 2 days duration. He denies any associated scrotal pain, redness, injury, dysuria, hematuria, penile discharge, fever, chills, nausea, vomiting, diarrhea, abd pain, neck pain, cough or vision changes. He states that he had been taking Goody powders which has been helping the headache. Workup showed WBC 15.3, hemoglobin 12.3, Platelet 195, D-dimer 959.12, potassium 3.5, Creat 2.0, Ferritin 804, BNP 3441, Urinalysis WBC 23.0 and Scrotum US- positive for moderate Hydrocele. Nephrology was consulted for further evalua tion and treatment of elevated Creatinine level. Past History Past Medical History: other (See HPI.) Past Surgical History: No surgical history Social history: smoking. denies: alcohol abuse, prescription drug abuse, IV drug use Family history: diabetes, hypertension Medications and Allergies Allergies Allergy/AdvReac Type Severity Reaction Status Date / Time No Known Allergies Allergy Unverified 10/18/19 04:27 Home Medications Medication Instructions Recorded Confirmed Last Taken Type No Known Home Medications [No 10/18/19 10/18/19 Unknown History Reported Home Medications] Active Meds: Active Medications Acetaminophen (Tylenol) 650 mg RI Q6H PRN PRN Reason: Pain, Mild (1-3) Atorvastatin Calcium (Lipitor) 40 mg PO QHS [facility] Last Admin: 10/20/19 22:53 Dose: 40 mg Documented by: Carvedilol (Coreg) 6.25 mg PO BID [facility] Last Admin: 10/21/19 09:19 Dose: 6.25 mg Documented by: Doxycycline Hyclate (Vibramycin) 100 mg PO BID [facility] Stop: 10/28/19 22:01 Last Admin: 10/21/19 09:19 Dose: 100 mg Documented by: Furosemide (Lasix) 40 mg IV 0600,1800 [facility] Last Admin: 10/21/19 06:07 Dose: 40 mg Documented by: Heparin Sodium (Porcine) (Heparin) 5,000 unit SUB-Q Q8HR [facility] Last Admin: 10/21/19 13:19 Dose: 5,000 unit Documented by: Ceftriaxone Sodium (Rocephin/Ns 1 Gm/50 Ml) 1 gm in 50 mls @ 100 mls/hr IV Q24H [facility]; Protocol Stop: 10/24/19 18:00 Last Admin: 10/21/19 13:19 Dose: 100 mls/hr Documented by: Review of Systems Constitutional: no weight loss, no weight gain, no fever, no chills, no anorexia, no fatigue, no weakness, no poor appetite Cardiovascular: edema, leg edema, no chest pain, no orthopnea, no syncope, no lightheadedness, no shortness of breath, no high blood pressure Respiratory: no cough, no hemoptysis, no shortness of breath, no dyspnea on exertion Gastrointestinal: no abdominal pain, no nausea, no vomiting, no diarrhea Genitourinary Male: other (scrotal swelling), no dysuria, no hematuria Rectal: no bleeding Integumentary: no redness, no wounds Neurological: no paralysis, no weakness, no convulsions, no aphasia, no change in speech, no confusion, no memory loss Exam - Vital Signs Vital signs: Vital Signs Temp Pulse Resp BP Pulse Ox 101.0 F H 104 H 20 139/93 95 10/18/19 04:25 10/18/19 04:25 10/18/19 04:25 10/18/19 04:25 10/18/19 04:25 - General Appearance General appearance: well-developed, well-nourished, appears stated age, obese, other (no distress) EENT: ATNC, PERRL, mucous membranes moist, hearing intact, vision intact Neck: Present: neck supple, trachea midline Respiratory: Clear to Ascultation Heart: regular, S1S2, no murmurs Gastrointestinal: Present: normoactive bowel sounds, obese. Absent: tenderness, distended Integumentary: no rash, warm and dry Neurologic: no focal deficit, no asterixis, alert and oriented x3 Musculoskeletal: Present: other (trace LE edema noted) Results - Lab Results 10/20/19 08:11 10/20/19 08:11 Most recent lab results Calcium 9.0 mg/dL (8.4-10.2) 10/20/19 08:11 - Image Kidney/bladder ultrasound: pending Assessment and Plan 1. Acute kidney injury vs CKD: Baseline renal function is unknown. Patient hasn't seen a physician prior to this hospitalization. Urine lytes and Renal US ordered. Monitor renal function. Avoid nephrotoxic agents. Meds dosage based on GFR. 2. FEN: Volume overload, on IV Lasix. Monitor lytes and volume status. 3. HFrEF, POA: Followed by [facility]. 4. Leucocytosis: Likely due to UTI/bacterial infection. Improved. 5. Elevated troponin: Non-specific per [facility]. 6. UTI (urinary tract infection): Continue Rocephin IV. 7. Elevated d-dimer.
[2019-10-21 17:07] VITALS: BP 146/94
--- NOTE | 2019-10-21 18:26 | Discharge Summary ---
Providers - Providers Date of Admission: 10/18/19 12:13 Date of discharge: 10/21/19 Attending physician: TRACY WEIR 10/18/19 13:58 Consult to Physician [CONS] Routine Comment: Consulting Provider: TAYLOR HILLMAN Physician Instructions: Reason For Exam: CHF 10/18/19 22:26 Consult to Physician [CONS] Routine Comment: Consulting Provider: FELICIANO AVALOS Physician Instructions: Reason For Exam: Epididymoorchitis/bilateral hydrocele 10/19/19 16:03 Consult to Physician [CONS] Routine Comment: Consulting Provider: TAYLOR HILLMAN Physician Instructions: Reason For Exam: Elevated Troponin 10/21/19 11:07 Consult to Physician [CONS] Routine Comment: Consulting Provider: MYLES GOMEZ Physician Instructions: Reason For Exam: SLIME/CKD Primary care physician: CASH TELLER Hospitalization Condition: Stable Hospital course: Subjective Date of service: 10/21/19 Principal diagnosis: shortness of breath Interval history: I have seen and examined the patient at the bedside Patient on room air. He denies cp and shortness breath Patient's chart medication list tests and reports reviewed Epididymoorchitis-improving--will discharge on doxycycline Echocardiogram - Shows- Moderate concentric LVH with low normal global LV function LVEF 45 to 50% (1) SLIME (acute kidney injury) Current Visit: Yes Status: Acute Plan to address problem: Underlying CKD Patient to follow-up with nephrology as outpatient (2) Leucocytosis Current Visit: Yes Status: Acute Plan to address problem: Improved creatinine and ask him whether he knows how to take insulin as he takes his insulin or continue to follow alert to was on 36 pounds 12/06 but on clindamycin for 10days and Ultram for pain present. 30 cc 60 1802 hours (3) Congestive heart failure Current Visit: Yes Status: Acute Plan to address problem: Condition stable Training Representative consulted-f/u with recommendation Elevated BNP-3341 Continue BB and diuretic ECHO-EF 45% Chest [id number] consistent with congestive heart failure and mild central pulmonary vascular congestion. CT of the head-no acute finding Follow-up with cardiology as outpatient (4) Elevated troponin Current Visit: Yes Status: Acute Plan to address problem: Nonspecific (5) Hyponatremia Current Visit: Yes Status: Acute Plan to address problem: Improved (6) UTI (urinary tract infection) Current Visit: Yes Status: Acute Plan to address problem: Improved Discharged on doxycycline (7) DVT prophylaxis Current Visit: Yes Status: Acute Plan to address problem: heparin SQ (8) Elevated d-dimer Current Visit: Yes Status: Acute Plan to address problem: Elevated inflammatory makers including ferritin-likely due to bacterial infection Covid test negative continue anti-coagulant with heparin D/c airborne and contact isolation (9) Epididymo-orchitis Current Visit: Yes Status: Acute Plan to address problem: Discharge on oral diet doxycycline (10) Morbid (severe) obesity due to excess calories Current Visit: Yes Status: Acute Plan to address problem: Discussed lifestyle modification and weight management (11) Bilateral hydrocele Current Visit: Yes Status: Acute Plan to address problem: Stable Urology consult, surgery consult if needed Srotum swelling likely 2/2 chf US shows moderate hydrocele Disposition: DC-01 TO HOME OR SELFCARE Time spent for discharge: 35 minutes - Discharge Diagnoses (1) Epididymo-orchitis Status: Acute (2) SLIME (acute kidney injury) Status: Acute (3) Congestive heart failure Status: Chronic Qualifiers: Heart failure type: combined systolic and diastolic Heart failure chronicity: acute on chronic Qualified Code(s): I50.43 - Acute on chronic combined systolic (congestive) and diastolic (congestive) heart failure Comment: Improved (4) Bilateral hydrocele Status: Chronic Comment: Follow-up with urology (5) Elevated d-dimer Status: Chronic (6) Elevated troponin Status: Chronic Comment: Secondary to elevated creatinine of 2.0 (7) Hyponatremia Status: Acute Comment: Improved (8) UTI (urinary tract infection) Status: Acute Comment: DC on doxycycline Core Measure Documentation - Palliative Care Palliative Care/ Comfort Measures: Not Applicable - Core Measures Any of the following diagnoses?: none Exam - Constitutional Vitals: Temp Pulse Resp BP Pulse Ox 98.1 F 79 20 146/94 97 10/21/19 17:02 10/21/19 17:02 10/21/19 17:02 10/21/19 17:02 10/21/19 17:02 General appearance: Present: no acute distress, well-nourished - EENT Eyes: Present: PERRL ENT: hearing intact, clear oral mucosa - Neck Neck: Present: supple, normal ROM - Respiratory Respiratory effort: normal Respiratory: bilateral: CTA - Cardiovascular Heart rate: 78 Rhythm: regular Heart Sounds: Present: S1 & S2. Absent: rub, click - Extremities Extremities: no ischemia, pulses intact, pulses symmetrical, No edema Peripheral Pulses: within normal limits - Abdominal General gastrointestinal: Present: soft, non-tender, non-distended, normal bowel sounds Male genitourinary: Present: asymmetrical (Swelling of the testicles which is improved from the admission) - Rectal Rectal Exam: deferred - Integumentary Integumentary: Present: clear, warm, dry - Musculoskeletal Musculoskeletal: gait normal, strength equal bilaterally - Psychiatric Psychiatric: appropriate mood/affect, intact judgment & insight - Neurologic Neurologic: CNII-XII intact, moves all extremities Plan Activity: no restrictions Diet: low fat, low cholesterol, low salt Follow up with: PRIMARY CAREMD [Primary Care Provider] - 7 Days MYLES GOMEZ MD [Staff Physician] - 7 Days TAYLOR HILLMAN MD [Staff Physician] - 7 Days FELICIANO AVALOS MD [Staff Physician] - 7 Days
[2019-10-21 19:56] LABS: Calcium 8.8 mg/dL (8.4-10.2)
== END 2019-10-21 20:04 | disposition home or self-care (01) | DRG 682 ==
LOC: ED 04:16 → 3A 12:13
PROVIDERS: ADMIT Internal Medicine; ATTEND Internal Medicine
DX: N17.9 Acute kidney failure, unspecified (principal); I50.43 Acute on chronic combined systolic (congestive) and diastolic (congestive) heart failure; E87.1 Hypo-osmolality and hyponatremia; N39.0 Urinary tract infection, site not specified; I13.0 Hypertensive heart and chronic kidney disease with heart failure and stage 1 through stage 4 chronic kidney disease, or unspecified chronic kidney disease; N45.3 Epididymo-orchitis; I11.0 Hypertensive heart disease with heart failure; D72.829 Elevated white blood cell count, unspecified; N50.89 Other specified disorders of the male genital organs; N43.3 Hydrocele, unspecified; E66.01 Morbid (severe) obesity due to excess calories; N18.3 Chronic kidney disease, stage 3 (moderate); R79.89 Other specified abnormal findings of blood chemistry; Z20.828 Contact with and (suspected) exposure to other viral communicable diseases; Z68.39 Body mass index [BMI] 39.0-39.9, adult; Z83.3 Family history of diabetes mellitus; Z82.49 Family history of ischemic heart disease and other diseases of the circulatory system
CPT/HCPCS: 36415; 70450; 71045; 71046; 76770; 78580; 80048; 80053; 80061; 81001; 82728; 83615; 83880; 84145; 84484; 85025; 85379; 86140; 87040; 87086; 93005; 93306; 93970; 93975; G0378; A9270-GY; A9540; J0696; J1644; J1885; J1940; J7030; U0003-CS